=== PATIENT | male | born 1975 | race Caucasian/White ===

== ENCOUNTER 2022-01-12 22:04 | Inpatient (IN) | payer BC ==
[2022-01-13 00:16] LABS: Albumin 5.1 g/dL (3.5-5.0); Calcium 9.3 mg/dL (8.4-10.2); Potassium 4.7 mmol/L (3.5-5.1); Total Bilirubin 1.3 mg/dL (0.2-1.3); Total Protein 7.8 g/dL (6.3-8.2)
[2022-01-13 00:20] LABS: HCT 45.4 % (39.0-53.0); HGB 15.7 gm/dL (13.0-17.5); MCH 32.6 pg (25.0-35.0); MCHC 34.6 g/dL (31.0-37.0); MCV 94.3 fL (80.0-100.0); Mean Platelet Volume 7.6; Platelet Count 145 k/uL (150-450); RBC 4.81 m/uL (4.30-5.90); RDW 12.8 % (11.5-15.5)
[2022-01-13 00:57] LABS: Eosinophils # (M) 0.15 k/uL (0-0.7); Monocytes # (M) 0.45 k/uL (0-1.0); Neutrophils % (M) 56 %; Nucleated Red Blood Cells 0 /100 WBC (0-0); RBC Morphology Normal; Total Cells Counted 100
[2022-01-13 01:08] LABS: Appearance,Urine Clear (Clear); Bilirubin,Urine Negative (Negative); Blood,Urine Negative (Negative); Color,Urine Yellow; Glucose,Urine (UA) Negative (Negative); Ketones,Urine Negative (Negative); Leukocyte Esterase,Urine Negative (Negative); Nitrite,Urine Negative (Negative); PH, Urine 5.5 (5.0-8.0); Protein,Urine Negative (Negative); Specific Gravity,Urine 1.015 (1.001-1.035); Urobilinogen,Urine <2.0 mg/dL (<2.0)
[2022-01-13] MEDS ORDERED: SODIUM CHLORIDE 0.9% 1,000 ML IV STA (01:59)
[2022-01-13] MEDS ORDERED: KETOROLAC 15 MG/ML 1 ML VIAL IVP STA (01:59)
[2022-01-13] MEDS: ONDANSETRON 4 MG/2 ML VIAL IVP STA ×2 (02:19→16:24)
[2022-01-13] MEDS ORDERED: MAG HYDROX/AL HYDROX/SIMETH 30 ML, HYOSCYAMINE ELIXIR 10 ML PO STA ×2 (02:44)
[2022-01-13] MEDS ORDERED: PANTOPRAZOLE 40 MG/10 ML VIAL IVP STA (02:44)
--- NOTE | 2022-01-13 02:45 | ED ---
Abdominal Pain HPI - General Chief Complaint: Abdominal Pain Stated Complaint: Hernia Time Seen by Provider: 01/13/22 01:58 Source: patient, RN notes reviewed, old records reviewed Mode of arrival: ambulatory Limitations: no limitations - History of Present Illness Initial Comments: This is a 38-year-old male DF for evaluation regards to his abdominal pain. Patient has history of periumbilical hernia. Patient coming in with pain in the same area. Diffuse generalized abdominal pain severe. Patient is on medications pain record and become the hospital. He does have mild nausea without vomiting. Feels that he has reflux burning epigastric pain as well. No issues of bowel or bladder. No fevers no other complaints MD Complaint: abdominal pain -: hour(s) Location: periumbilical Radiation: suprapubic, bilateral flank Migration to: epigastric Severity: moderate Severity scale (1-10): 7 Quality: stabbing Consistency: constant Improves With: nothing Worsens With: nothing Context: recent surgery/procedure Associated Symptoms: nausea Treatments Prior to Arrival: other (none) - Related Data Allergies Allergy/AdvReac Type Severity Reaction Status Date / Time No Known Allergies Allergy Verified 01/12/22 22:45 Review of Systems ROS Statement: Those systems with pertinent positive or pertinent negative responses have been documented in the HPI. ROS Other: All systems not noted in ROS Statement are negative. Past Medical History Past Medical History: GERD/Reflux, Hypertension History of Any Multi-Drug Resistant Organisms: None Reported Past Surgical History: No Surgical Hx Reported Past Psychological History: No Psychological Hx Reported Smoking Status: Never smoker Past Alcohol Use History: Rare Past Drug Use History: None Reported Course Vital Signs 01/12/22 22:40 Temperature 97.8 F Pulse Rate 72 Respiratory 16 Rate Blood Pressure 147/97 O2 Sat by Pulse 100 Oximetry - Reevaluation(s) Reevaluation #1: 01/13/22 03:27 Medical records reviewed Reevaluation #2: 01/13/22 03:27 Patient symptoms are improved Reevaluation #3: 01/13/22 03:57 Patient informed of results and questions answered - Consultations Consultation #1: Spoke with Dr. Devine regarding findings she agrees to admit this patient Medical Decision Making - Medical Decision Making 46 male to the emergency department with incarcerated umbilical hernia, patient will be admitted for surgical evaluation management - Lab Data Result diagrams: 01/12/22 23:24 01/12/22 23:24 Lab Results 01/12/22 01/12/22 01/13/22 Range/Units 23:24 23:24 00:45 WBC 5.0 (3.8-10.6) k/uL RBC 4.81 (4.30-5.90) m/uL Hgb 15.7 (13.0-17.5) gm/dL Hct 45.4 (39.0-53.0) % MCV 94.3 (80.0-100.0) fL MCH 32.6 (25.0-35.0) pg MCHC 34.6 (31.0-37.0) g/dL RDW 12.8 (11.5-15.5) % Plt Count 145 L (150-450) k/uL MPV 7.6 Neutrophils % (Manual) 56 % Lymphocytes % (Manual) 32 % Monocytes % (Manual) 9 % Eosinophils % (Manual) 3 % Neutrophils # (Manual) 2.80 (1.3-7.7) k/uL Lymphocytes # (Manual) 1.60 (1.0-4.8) k/uL Monocytes # (Manual) 0.45 (0-1.0) k/uL Eosinophils # (Manual) 0.15 (0-0.7) k/uL Nucleated RBCs 0 (0-0) /100 WBC Manual Slide Review Performed RBC Morphology Normal Sodium 137 (137-145) mmol/L Potassium 4.7 (3.5-5.1) mmol/L Chloride 101 (98-107) mmol/L Carbon Dioxide 25 (22-30) mmol/L Anion Gap 11 mmol/L BUN 22 H (9-20) mg/dL Creatinine 1.60 H (0.66-1.25) mg/dL Est GFR (CKD-EPI)AfAm 58 (>60 ml/min/1.73 sqM) Est GFR (CKD-EPI)NonAf 50 (>60 ml/min/1.73 sqM) Glucose 84 (74-99) mg/dL Calcium 9.3 (8.4-10.2) mg/dL Total Bilirubin 1.3 (0.2-1.3) mg/dL AST 45 (17-59) U/L ALT 49 (4-49) U/L Alkaline Phosphatase 41 (38-126) U/L Total Protein 7.8 (6.3-8.2) g/dL Albumin 5.1 H (3.5-5.0) g/dL Amylase 90 (30-110) U/L Lipase 114 (23-300) U/L Urine Color Yellow Urine Appearance Clear (Clear) Urine pH 5.5 (5.0-8.0) Ur Specific [place] 1.015 (1.001-1.035) Urine Protein Negative (Negative) Urine Glucose (UA) Negative (Negative) Urine Ketones Negative (Negative) Urine Blood Negative (Negative) Urine Nitrite Negative (Negative) Urine Bilirubin Negative (Negative) Urine Urobilinogen <2.0 (<2.0) mg/dL Ur Leukocyte Esterase Negative (Negative) - Radiology Data Radiology results: report reviewed (CT head and pelvis positive for incarcerated hernia), image reviewed Disposition Clinical Impression: Incarcerated umbilical hernia, Abdominal pain Disposition: ADMITTED IP TO THIS [facility] Condition: Good Is patient prescribed a controlled substance at d/c from ED?: No Referrals: None,Stated [Primary Care Provider] - 1-2 days
--- NOTE | 2022-01-13 03:02 | CT ---
EXAMINATION TYPE: CT abdomen pelvis w con DATE OF EXAM: 01/13/2022 COMPARISON: None HISTORY: HERNIA PAIN CT DLP: 1761.6 mGycm Automated exposure control for dose reduction was used. CONTRAST: Performed with IV Contrast, patient injected with 80 mL of Isovue 300. Images obtained from the diaphragm to the floor the pelvis with IV contrast. There is mild subsegmental atelectasis left lung base. Heart size is normal. No pericardial effusion. There is no pleural effusion. The stomach is large. Liver and spleen are intact. The bile ducts are not dilated. Spleen is enlarged and measures 14.5 cm. Gallbladder is intact. There is no pancreatic mass. There is no adrenal mass. Kidneys show satisfactory contrast opacification. There is bilateral renal parapelvic cysts. No hydronephrosis. Ureters are not dilated. There is no retroperitoneal adenopathy. Bladder distends smoothly. There is minimal prostate calcification. There is no evidence of pelvic m ass. The appendix is inferior and small and appears normal. There are multiple dilated small bowel loops in the left upper quadrant. These measure up to 3.8 cm i n diameter. Transition point appears to be incarcerated periumbilical ventral hernia containing loop of small bowel. The terminal ileum is not dilated. There is no inguinal hernia. No free fluid in the pelvis. No mesenteric edema. No ascites. The lumbar vertebrae have normal alignment. No compression fracture. Bony pelvis is intact. The hip joints are intact. IMPRESSION: There is dilated proximal small bowel with mechanical proximal small bowel obstruction related to inc arcerated ventral hernia. Mild splenomegaly. Mild subsegmental atelectasis left lung base.
[2022-01-13] MEDS ORDERED: ONDANSETRON 4 MG/2 ML VIAL IVP PRN (03:56)
[2022-01-13] MEDS ORDERED: MORPHINE SULFATE 4 MG/ML SYRINGE IV PRN (03:56)
[2022-01-13] MEDS ORDERED: MORPHINE SULFATE 4 MG/ML SYRINGE IVP STA (03:56)
[2022-01-13] MEDS ORDERED: SODIUM CHLORIDE 0.9% 1,000 ML IV ONE (03:56)
--- NOTE | 2022-01-13 11:40 | XR ---
EXAMINATION TYPE: XR abdomen 2V DATE OF EXAM: 01/13/2022 CLINICAL HISTORY: Hernia with pain TECHNIQUE: Supine and upright views of the abdomen are obtained. COMPARISON: CT abdomen and pelvis earlier today. FINDINGS: Some paucity of bowel gas. Gas and fecal material seen in nondistended colon along the shaquille phery. Less well-visualized fluid dilated stomach and proximal small bowel loops on plain film versus CT. Splenomegaly redemonstrated. No free air. Lung bases are clear. Osseous structures are intact. IMPRESSION: Overall nonspecific bowel gas pattern. Findings consistent with proximal to mid small shirin wel obstruction due to ventral wall hernia are seen better on CT versus x-ray.
--- NOTE | 2022-01-13 13:30 | P.GSHP ---
History of Present Illness H&P Date: 01/13/22 CHIEF COMPLAINT: Abdominal pain HISTORY OF PRESENT ILLNESS: This is a 46 -year-old male with a known prior history of umbilical hernia repair and a right inguinal hernia repair. He presents to the hospital with complaints of periumbilical pain and a bulging at the umbilicus. He reports having significant heartburn and nausea. He rated the pain about 6 out of 10. The pain at times with increased to 10 out of 10. The pain was located in the umbilicus area and radiated to the left side of his abdomen. He reports being able to have bowel movements and flatus. He does have a prior history of atrial fibrillation and had undergone cardioversion. He is not on any blood thinners. Computed tomography scan of the abdomen showed evidence of dilated proximal small bowel with mechanical proximal small bowel obstruction related to incarcerated ventral hernia. Patient denies any fever chills or sweats. Patient reports that the hernia bulge as resolved since coming into the ER. PAST MEDICAL HISTORY: See list. PAST SURGICAL HISTORY: See list. MEDICATIONS: See list. ALLERGIES: See list. SOCIAL HISTORY: No illicit drug use. REVIEW OF SYSTEMS: CONSTITUTIONAL: Denies fever or chills. HEENT: Denies blurred vision, vision changes, or eye pain. Denies hemoptysis ENDOCRINE: Denies heat or cold intolerance. CARDIOVASCULAR: Denies chest pain or pressure. RESPIRATORY: No shortness of breath. GASTROINTESTINAL: Please refer to HPI NEURO: Denies history of seizures. PSYCH: No depression or suicidal ideation HEMATOLOGIC: Denies bleeding disorders. LYMPHATIC: The patient denies any lumps and bumps around the neck. GENITOURINARY: Denies any blood in urine or increased urinary frequency. MUSCULOSKELETAL: Denies myalgias. Denies joint swelling. Denies decreased range of motion beyond patients baseline. SKIN: Denies pruitis. Denies rash. PHYSICAL EXAM: VITAL SIGNS: Reviewed GENERAL: Well-developed in no acute distress. HEENT: No sclera icterus. Extraocular movements grossly intact. Moist buccal mucosa. Head is atraumatic, normocephalic. Hears conversational speech. No nasal drainage. NECK: Supple without lymphadenopathy. CHEST: Non-labored respirations and equal bilateral excursions. CARDIOVASCULAR: Palpable 2+ radial pulses. ABDOMEN: Soft. Nondistended. Patient does have tenderness with palpation of the umbilicus area. Hernia reduced. MUSCULOSKELETAL: No clubbing or cyanosis. NEUROLOGIC: No focal or lateralizing signs. Cranial nerves II through XII grossly intact. PSYCH: Appropriate affect. Alert and oriented to person, place and time. SKIN: Well perfused. Good skin turgor. LABORATORY DATA: WBC 5.0 hemoglobin 15.7 platelet 145 Sodium 137 potassium 4.7 creatinine 1.60 LFTs normal lipase 114 Urinalysis negative IMAGING: Computed tomography scan of the abdomen showed evidence of dilated proximal small bowel with mechanical proximal small bowel obstruction related to incarcerated ventral hernia. Mild splenomegaly. Mild subsegmental atelectasis left lung base. ASSESSMENT: 1. Mechanical small bowel obstruction related to incarcerated ventral hernia 2. Prior history of umbilical hernia repair 3. Acute kidney injury 4. Hypertension 5. Prior history of atrial fibrillation status post cardioversion 6. History of PVCs 7. History of kidney stone status post intervention PLAN: -Patient scheduled for robotic umbilical hernia repair today with Dr. Magaña -Keep patient nothing by mouth -Continue IV fluids -Continue supportive care -Follow up abdominal x-ray and preop EKG ordered Physician Box Car Loader note has been reviewed by physician. Signing provider agrees with the documented findings, assessment, and plan of care. REASON FOR CONSULTATION: Bowel obstruction HISTORY OF PRESENT ILLNESS: The patient is a 46 year old male travelling from [place], [place] who is visiting [place]. He reports prior history of umbilical hernia repair 20+ years ago. This week, he has swelling along his abdomen. He reports the past 3 days having soreness along his abdomen. 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 No emesis. He reports decrease flatus yesterday and he presented to the emergency room. Today, he reports is abdomen is less distended and swelling along his abdomen has improved. He had diagnostic studies of bowel obstruction due his hernia. He is admitted due to small bowel obstruction. PAST MEDICAL HISTORY: See list and reviewed PAST SURGICAL HISTORY: See list and reviewed MEDICATIONS: See list and reviewed ALLERGIES: See list and reviewed SOCIAL HISTORY: See list and reviewed FAMILY HISTORY: See list and reviewed REVIEW OF ORGAN SYSTEMS: CONSTITUTIONAL: No fevers or chills. No recent weight loss. EYES: Denies any trouble with vision. No glasses. HEENT: No difficulties with hearing. No nosebleeds. No difficulty swallowing. RESPIRATORY: Denies pneumonia. Denies any troubles with breathing or dyspnea on exertion. CARDIOVASCULAR: Past atrial fibrillation with conversion. Has hypertensivie heart disease. GASTROINTESTINAL: Denies fatty food intolerance. Denies change in bowel habits and gas bloat. Has gastroesophageal reflux disease. GENITOURINARY: Denies any blood in urine or increased urinary frequency. Has kidney stones. NEUROLOGICAL: Denies any numbness or tingling along the distal extremities. No seizure disorders or headaches. MUSCULOSKELETAL: Has back pain, stiffness or joint arthritis. SKIN: No current skin cancer. No rash. PSYCHIATRIC: Hast depression. No suicidal thoughts. ENDOCRINE: Denies current thyroid disorders. Denies any blood sugar glucose intolerance. HEME/LYMPHATIC: Denies any lumps and bumps around the neck. No recent deep venous thrombosis. ALLERGY/IMMUNOLOGY: No immunoglobulin therapy. No immune deficiencies. BREAST: Denies current breast lumps, pain or nipple discharge. PHYSICAL EXAM: VITALS: Reviewed CONSTITUTIONAL: Well developed and in no acute distress. EYES: Conjuctivae without sclera icterus. Extraocular movements grossly intact. HEAD, EARS, NOSE, THROAT: Moist buccal mucosa. Head is atraumatic, normocephal ic. Hears conversational speech. No nasal drainage. NECK: Supple. No JV distention. No thyroidomegaly. RESPIRATORY: Non-labored respirations and equal bilateral excursions. No gross wheezes. CARDIOVASCULAR: Regular rate and rhythm. Extremities without moderate edema. Palpable 2+ radial pulses. ABDOMEN: Tender umbilicus with well-healed infraumbilical incision. No peritonitis. No skin changes. LYMPH: No neck lymphadenopathy. MUSCULOSKELETAL: Nail and fingers with good capillary refill. No clubbing, cyanosis, or edema. SKIN: Warm and well perfused with good skin turgor. NEUROLOGIC: Cranial nerves II through XII grossly intact. Sensation upper and extremities intact. No focal or lateralizing signs. PSYCH: Appropriate affect. Alert and oriented to person, place and time. Displays appropriate insight. CLINCAL LABS: Reviewed. WBC normal at 5.0. Platelets low 145. IMAGING: Independently reviewed CT of the abdomen and pelvis demonstrating incarcerated umbilical hernia incorporation small bowel with distal decompression, consistent with bowel obstruction. This is my independent interpretation. RADIOLOGY: Report reviewed. CT with incarcerated ventral hernia and dilated s mall bowel. ASSESSMENT: 1. Incarcerated ventral hernia with bowel obstruction 2. Hypertensive heart disease PLAN: 1. Recommend EKG for pre-existing history of hypertensive heart disease and pa st atrial fibrillation. 2. Recommend robotic ventral hernia repair due to bowel obstruction. 3. He is elevated risk of complications with hypertensive heart disease. ADVANCE DIRECTIVE: Thank you for this kind consultation. Past Medical History Past Medical History: GERD/Reflux, Hypertension, Osteoarthritis (OA) Additional Past Medical History / Comment(s): Cervical DDD, kidney stone and went into afib for about a week at the time of the stone, sinus problems History of Any Multi-Drug Resistant Organisms: None Reported Past Surgical History: No Surgical Hx Reported Additional Past Surgical History / Comment(s): mbilical hernia repair, R inguinal hernia repair, at age 4 yrs pt states he had blood clots removed from below R axillae and from buttock, cervical ablations Past Anesthesia/Blood Transfusion Reactions: No Reported Reaction Smoking Status: Never smoker - Past Family History Father Family Medical History: AFIB Additional Family Medical History / Comment(s): AICD, strangulated umbilical hernia Mother Family Medical History: Thyroid Disorder Additional Family Medical History / Comment(s): Multiple issues with hernias, hyperthyroid Medications and Allergies Home Medications Medication Instructions Recorded Confirmed Type Acetaminophen Tab [Tylenol Tab] 1,000 mg PO Q6HR PRN #30 tablet 01/13/22 Rx Fluticasone Propionate 1 spray EA NOSTRIL DAILY PRN 01/13/22 01/13/22 History Ibuprofen 800 mg PO Q8HR PRN #30 tablet 01/13/22 Rx Losartan [Cozaar] 50 mg PO DAILY@199901/13/22 01/13/22 History Multivit-Min/FA/Lycopen/Lutein 1 tab PO DAILY@199901/13/22 01/13/22 History [Centrum Silver Tablet] Omeprazole [PriLOSEC] 40 mg PO DAILY@199901/13/22 01/13/22 History Phentermine HCl 37.5 mg PO DAILY 01/13/22 01/13/22 History Pyridoxine HCl (Vitamin B6) 100 mg PO DAILY@199901/13/22 01/13/22 History [Vitamin B-6] Simethicone [Gas-X] 125 mg PO AC-TID PRN #20 capsule 01/13/22 Rx Tadalafil [Cialis] 40 - 60 mg PO DAILY PRN 01/13/22 01/13/22 History Ubidecarenone [Co Q-10] 100 mg PO DAILY@199901/13/22 01/13/22 History buPROPion HCL [buPROPion HCL Xl] 150 mg PO DAILY@199901/13/22 01/13/22 History Allergies Allergy/AdvReac Type Severity Reaction Status Date / Time No Known Allergies Allergy Verified 01/13/22 07:55 Surgical - Exam Vital Signs Temp Pulse Resp BP Pulse Ox 97.8 F 72 16 147/97 100 01/12/22 22:40 01/12/22 22:40 01/12/22 22:40 01/12/22 22:40 01/12/22 22:40 Results - Labs 01/12/22 23:24 01/12/22 23:24 Abnormal Lab Results - Last 24 Hours (Table) 01/12/22 01/12/22 Range/Units 23:24 23:24 Plt Count 145 L (150-450) k/uL BUN 22 H (9-20) mg/dL Creatinine 1.60 H (0.66-1.25) mg/dL Albumin 5.1 H (3.5-5.0) g/dL Diabetes panel 01/12/22 Range/Units 23:24 Sodium 137 (137-145) mmol/L Potassium 4.7 (3.5-5.1) mmol/L Chloride 101 (98-107) mmol/L Carbon Dioxide 25 (22-30) mmol/L BUN 22 H (9-20) mg/dL Creatinine 1.60 H (0.66-1.25) mg/dL Glucose 84 (74-99) mg/dL Calcium 9.3 (8.4-10.2) mg/dL AST 45 (17-59) U/L ALT 49 (4-49) U/L Alkaline Phosphatase 41 (38-126) U/L Total Protein 7.8 (6.3-8.2) g/dL Albumin 5.1 H (3.5-5.0) g/dL Calcium panel 01/12/22 Range/Units 23:24 Calcium 9.3 (8.4-10.2) mg/dL Albumin 5.1 H (3.5-5.0) g/dL Pituitary panel 01/12/22 Range/Units 23:24 Sodium 137 (137-145) mmol/L Potassium 4.7 (3.5-5.1) mmol/L Chloride 101 (98-107) mmol/L Carbon Dioxide 25 (22-30) mmol/L BUN 22 H (9-20) mg/dL Creatinine 1.60 H (0.66-1.25) mg/dL Glucose 84 (74-99) mg/dL Calcium 9.3 (8.4-10.2) mg/dL Adrenal panel 01/12/22 Range/Units 23:24 Sodium 137 (137-145) mmol/L Potassium 4.7 (3.5-5.1) mmol/L Chloride 101 (98-107) mmol/L Carbon Dioxide 25 (22-30) mmol/L BUN 22 H (9-20) mg/dL Creatinine 1.60 H (0.66-1.25) mg/dL Glucose 84 (74-99) mg/dL Calcium 9.3 (8.4-10.2) mg/dL Total Bilirubin 1.3 (0.2-1.3) mg/dL AST 45 (17-59) U/L ALT 49 (4-49) U/L Alkaline Phosphatase 41 (38-126) U/L Total Protein 7.8 (6.3-8.2) g/dL Albumin 5.1 H (3.5-5.0) g/dL
[2022-01-13] MEDS ORDERED: ACETAMINOPHEN TAB 500 MG TAB PO PRN (16:06)
--- NOTE | 2022-01-13 16:06 | P.HPADDEND ---
H&P Addendum H&P Addendum Date: 01/13/22 Benefits and risks of robotic repair of incarcerated umbilical hernia described. Patient had prior repair with recurrence. EKG without ST changes or T-wave abnormalities.
[2022-01-13] MEDS ORDERED: TAMSULOSIN 0.4 MG CAP.ER.24H PO PRN (16:07)
[2022-01-13] MEDS ORDERED: GABAPENTIN 300 MG CAP PO PRN (16:07)
[2022-01-13] MEDS ORDERED: LACTATED RINGERS 1,000 ML IV ONE ×2 (16:24→17:33)
[2022-01-13] MEDS ORDERED: MIDAZOLAM 2 MG/2 ML VIAL IVP ONE (16:31)
[2022-01-13] MEDS ORDERED: BUPIVACAIN-EPI 0.25%-1:200,000 30 ML VIAL SQ ONE ×2 (16:35→16:59)
[2022-01-13] MEDS: HEPARIN SODIUM,PORCINE/PF 5,000 UNIT/0.5 ML SYRINGE SQ PRN ×2 (16:36→16:40)
[2022-01-13] MEDS ORDERED: LIDOCAINE 2% INJ 20 MG/ML (2 ML VIAL) ONE (16:37)
[2022-01-13] MEDS ORDERED: fentaNYL (PF) 50 MCG/ML 2 ML AMP ONE (16:37)
[2022-01-13] MEDS ORDERED: HYDROmorphone (PF) 1 MG/ML ONE (16:37)
[2022-01-13] MEDS ORDERED: ROPIVACAINE 5 MG/ML 30 ML VIAL ONE (16:37)
[2022-01-13] MEDS ORDERED: SUCCINYLCHOLINE CHLORIDE 100 MG/5 ML SYR IV ONE (16:37)
[2022-01-13] MEDS ORDERED: NEOSTIGMINE 1 MG/ML 10 ML VIAL ONE (16:37)
[2022-01-13] MEDS ORDERED: PROPOFOL 10 MG/ML 20 ML VIAL IV ONE (16:37)
[2022-01-13] MEDS ORDERED: DEXAMETHASONE SOD PHOSPHATE 4 MG/ML 1 ML VIAL ONE (16:37)
[2022-01-13] MEDS ORDERED: MIDAZOLAM 2 MG/2 ML VIAL ONE (16:37)
[2022-01-13] MEDS ORDERED: GLYCOPYRROLATE 0.2 MG/ML 2 ML VIAL ONE (16:37)
[2022-01-13] MEDS ORDERED: ROCURONIUM 10 MG/ML (5 ML VIAL) IV ONE (16:37)
[2022-01-13] MEDS ORDERED: KETOROLAC 15 MG/ML 1 ML VIAL ONE (16:37)
--- NOTE | 2022-01-13 17:57 | P.PN ---
Progress Note - Text Progress Note Date: 01/13/22 To Whom It May Concern: William Aguilar III is under my general surgical care. He underwent major abdominal surgery for diagnosis K43.2 He was hospitalized 01/12/2022 to 01/14/2022. Patient is unable to work during time of recovery with a 4 pound exertional restriction. He may return to work without restrictions, 02/14/2022. Feel free to contact us if questions. Sincerely, Andra Magaña MD, FACS
--- NOTE | 2022-01-13 18:04 | P.OP ---
Date of Procedure: 01/13/22 Description of Procedure: SURGEON: ELIGIO GIFFORD MD PREOPERATIVE DIAGNOSES: 1. Initial incarcerated recurrent incisional hernia at umbilicus with bowel obstruction 2. Hypertensive heart disease 3. Past history of atrial fibrillation 4. Sinus bradycardia 5. Obesity due to excess calories, BMI 32.3 6. Gastroesophageal reflux disease 7. Depressive disorder 8. History of bilateral inguinal hernia 9. Prior history umbilical hernia repair POSTOPERATIVE DIAGNOSES: 1. Initial incarcerated recurrent incisional hernia at umbilicus with bowel obstruction, 2 cm 2. Hypertensive heart disease 3. Past history of atrial fibrillation 4. Sinus bradycardia 5. Obesity due to excess calories, BMI 32.3 6. Gastroesophageal reflux disease 7. Depressive disorder 8. History of bilateral inguinal hernia 9. Prior history umbilical hernia repair OPERATION: 1. Robotic-assisted da Jagjit Xi laparoscopic repair of recurrent incarcerated incisional ventral hernia with mesh, ventralight ST mesh 11.4 cm Anesthesia: GETA, regional, local Estimated Blood Loss (ml): 5 Pathology: 1. Incarcerated recurrent incisional hernia contents COMPLICATIONS: None. Operative Findings: 1. Recurrent incarcerated incisional hernia of the umbilicus, 2 cm 2. No recurrent bilateral inguinal hernia 3. Fascia repaired using #1 V-lock suture INDICATIONS: The patient is a 46-year-old male from [facility] presented to the emergency room acutely with swelling along the abdomen and bowel obstruction. Diagnostic studies demonstrated incarcerated hernia and small bowel. Emergent surgical intervention was described. Surgical intervention with laparoscopic versus robotic and open techniques were reviewed. Placement of mesh was also reviewed. Benefits and risks were thoroughly described. Informed consent was obtained. DESCRIPTION OF PROCEDURE: The patient was brought into the operating room and laid in supine position. After general induction, the abdomen had been prepped and draped in standard sterile fashion. Ioban draping was also placed. Prior to incision, a timeout protocol was confirmed with surgical team regarding the patient's name including procedures to be performed. The robot was primed prior to the procedure. A field block using local anesthetic was placed along hernia site including the proposed port sites. Initial incision was made with an #11 blade along the left upper quadrant. A 0 degree 5 mm laparoscopic trocar entry was performed and insufflated. Three 8 mm ports were placed along the left lateral abdominal wall under direct localization after exchanging the 5-mm for an 8 mm port. Placements of the ports were 15 cm from the target anatomy and 10 cm apart. An accessory 12 mm port was placed at the left epigastrium for exchange of mesh including sutures. The da Jagjit Xi robot was previously primed, prepped and draped then docked onto the left side of the patient. I then sat at the robot Da Jagjit Xi console where working arms of the robot including Bovie cautery connected to robotic scissors, needle commercial relief driver, and graspers placed by the graduate assistant. Incarcerated omental contents were found along the incisional hernia defect corresponding to prior umbilical hernia repair. The defects were reduced with preperitoneal fat. Fascial defect found, 2 x 2 cm. Resolution of bowel obstruction was confirmed as a small bowel was without dilation. The incarcerated contents were reduced as the peritoneal fat was cleaned from the abdominal wall. Next, hemostasis was checked with cautery. The hernia defects were oversewn using #1 nonabsorbable V-lock suture for each defect separately with fascial imbrication x 2. Next, ventralight ST mesh 11.4 cm was placed with the rough side towards the abdominal wall as to cover the incisional hernia defect. 2-0 VLOC 9 inch absorbable sutures were used to fixate the mesh. A final endoscopic imaging was obtained. All instruments and pneumoperitoneum were evacuated from the abdominal cavity. The da Jagjit Xi robot was undocked from the patient. I re-scrubbed into the case for closure of incisions. The fascia of the 12-mm port was probed and closed using 0 Vicryl and Omar Tovar. The incisions were reapproximated using 4-0 Monocryl in an interrupted subcuticular fashion. Liquid glue was applied to the skin after cleansing the skin with normal saline and dilute hydrogen peroxide. An abdominal binder was placed. An umbilical dressing was placed prior. At the end of the procedure, needle, sponge, and instrument count had been verified correct by surgical endoscopist. The patient was taken to the postanesthesia care unit in stable condition. Intraoperative findings were shared with the patient's family.
[2022-01-13] MEDS ORDERED: METOCLOPRAMIDE 5 MG/ML 2 ML VIAL IVP PRN (18:16)
[2022-01-13] MEDS ORDERED: HYDROmorphone 1 MG/ML 1 ML SYRINGE IVP PRN (18:16)
[2022-01-13] MEDS ORDERED: NALOXONE 0.4 MG/ML 1 ML VIAL IV PRN (18:16)
[2022-01-13] MEDS ORDERED: FLUTICASONE 50MCG/SPRAY NASAL 16GM EA NOSTRIL PRN (18:17)
--- NOTE | 2022-01-13 19:58 | P.ANPRN ---
Procedure Note - Anesthesia - Nerve Block Performed Bilateral Rectus Abdominis Single Time Out Performed: Yes Date of Procedure: 01/13/22 Procedure Start Time: 16:31 Procedure Stop Time: 16:35 Location of Patient: PreOp Indication: Acute Post-Operative Pain, Requested by Surgeon Sedation Type: Sedate with meaningful contact maintained Preparation: Sterile Prep Position: Supine Needle Types: Pajunk Needle Gauge: 21 Ultrasound used to visualize needle placement: Yes Ultrasound used to observe medication spread: Yes Blood Aspirated: No Pain Paresthesia on Injection Noted: No Resistance on Injection: Normal Image Stored and Saved: Yes Events: Uneventful and Well Tolerated (ropi .5% 20cc plus dexamethasone 4mg)
[2022-01-13] MEDS ORDERED: buPROPion XL 150 MG TAB.ER.24H PO SCH (20:00)
[2022-01-13] MEDS ORDERED: LOSARTAN 50 MG TAB PO SCH (20:00)
[2022-01-13] MEDS: FAMOTIDINE 20 MG TAB PO SCH (20:43)
[2022-01-14] MEDS: KETOROLAC 15 MG/ML 1 ML VIAL IVP SCH ×4 (00:07→13:18)
[2022-01-14] MEDS: ACETAMINOPHEN TAB 500 MG TAB PO SCH ×4 (00:08→13:18)
[2022-01-14] MEDS: FAMOTIDINE 20 MG TAB PO SCH (07:46)
[2022-01-14] MEDS ORDERED: ENOXAPARIN 30 MG/0.3 ML SYRINGE SQ SCH (09:00)
[2022-01-14 10:09] VITALS: BP 127/83; PULSE 66; RESP 18; TEMP 97.7
--- NOTE | 2022-01-14 13:25 | P.DS ---
Providers Date of admission: 01/13/22 04:05 Expected date of discharge: 01/14/22 Attending physician: Andra Magaña Consults: 01/13/22 16:06 Consult Physician Routine Consulting Provider: [facility] Consult Reason/Comments: Regional block Do you want consulting provider notified?: Yes Primary care physician: Physician Nonstaff Hospital Course: Discharge diagnosis 1. Initial incarcerated recurrent incisional hernia at umbilicus with bowel obstruction, 2 cm 2. Hypertensive heart disease 3. Past history of atrial fibrillation 4. Sinus bradycardia 5. Obesity due to excess calories, BMI 32.3 6. Gastroesophageal reflux disease 7. Depressive disorder 8. History of bilateral inguinal hernia 9. Prior history umbilical hernia repair Hospital course The patient is a 46-year-old male from [facility] presented to the emergency room acutely with swelling along the abdomen and bowel obstruction. Diagnostic studies demonstrated incarcerated hernia and small bowel. Patient is status post Robotic-assisted da Jagjit Xi laparoscopic repair of recurrent incarcerated incisional ventral hernia with mesh. He tolerated surgery well. His pain is controlled. He is tolerating diet. He is having flatus. He is up and ambulating. He is afebrile. He is stable for discharge. Physician Firearms Inspector note has been reviewed by physician. Signing provider agrees with the documented findings, assessment, and plan of care. As above. Discharge instructions reviewed including no lifting for 4 pounds in 4 weeks. Prior to 20 hour car travel to [place], DVT prophylaxis reviewed at length. Telehealth follow-up in 5 days described. Procedures: OPERATION: 1. Robotic-assisted da Jagjit Xi laparoscopic repair of recurrent incarcerated incisional ventral hernia with mesh, ventralight ST mesh 11.4 cm Anesthesia: GETA, regional, local Estimated Blood Loss (ml): 5 Pathology: 1. Incarcerated recurrent incisional hernia contents COMPLICATIONS: None. Operative Findings: 1. Recurrent incarcerated incisional hernia of the umbilicus, 2 cm 2. No recurrent bilateral inguinal hernia 3. Fascia repaired using #1 V-lock suture Patient Condition at Discharge: Stable Plan - Discharge Summary Discharge Rx Participant: Yes New Discharge Prescriptions: New Acetaminophen Tab [Tylenol Tab] 1,000 mg PO Q6HR PRN #30 tablet PRN Reason: Pain Simethicone [Gas-X] 125 mg PO AC-TID PRN #20 capsule PRN Reason: Pain Ibuprofen 800 mg PO Q8HR PRN #30 tablet PRN Reason: Pain Continue Tadalafil [Cialis] 40 - 60 mg PO DAILY PRN PRN Reason: sexual intercourse Multivit-Min/FA/Lycopen/Lutein [Centrum Silver Tablet] 1 tab PO DAILY@1999 Phentermine HCl 37.5 mg PO DAILY Losartan [Cozaar] 50 mg PO DAILY@1999 buPROPion HCL [buPROPion HCL Xl] 150 mg PO DAILY@1999 Pyridoxine HCl (Vitamin B6) [Vitamin B-6] 100 mg PO DAILY@1999 Ubidecarenone [Co Q-10] 100 mg PO DAILY@1999 Omeprazole [PriLOSEC] 40 mg PO DAILY@1999 Fluticasone Propionate 1 spray EA NOSTRIL DAILY PRN PRN Reason: Congestion Discontinued Ibuprofen [Motrin Ib] 800 mg PO Q8H PRN PRN Reason: Pain Acetaminophen [Tylenol Arthritis] 650 mg PO Q8HR PRN PRN Reason: Pain Discharge Medication List Acetaminophen Tab [Tylenol Tab] 1,000 mg PO Q6HR PRN #30 tablet 01/13/22 [Rx] Fluticasone Propionate 1 spray EA NOSTRIL DAILY PRN 01/13/22 [History] Ibuprofen 800 mg PO Q8HR PRN #30 tablet 01/13/22 [Rx] Losartan [Cozaar] 50 mg PO DAILY@199901/13/22 [History] Multivit-Min/FA/Lycopen/Lutein [Centrum Silver Tablet] 1 tab PO DAILY@199901/13/22 [History] Omeprazole [PriLOSEC] 40 mg PO DAILY@199901/13/22 [History] Phentermine HCl 37.5 mg PO DAILY 01/13/22 [History] Pyridoxine HCl (Vitamin B6) [Vitamin B-6] 100 mg PO DAILY@199901/13/22 [History] Simethicone [Gas-X] 125 mg PO AC-TID PRN #20 capsule 01/13/22 [Rx] Tadalafil [Cialis] 40 - 60 mg PO DAILY PRN 01/13/22 [History] Ubidecarenone [Co Q-10] 100 mg PO DAILY@199901/13/22 [History] buPROPion HCL [buPROPion HCL Xl] 150 mg PO DAILY@199901/13/22 [History] Follow up Appointment(s)/Referral(s): Andra Magaña MD [STAFF PHYSICIAN] - 01/18/22 (Telehealth) None,Stated [REFERRING] - 1-2 days Patient Instructions/Handouts: Abdominal Binder (DC), Ventral Hernia Repair (GEN) Activity/Diet/Wound Care/Special Instructions: DO NOT REMOVE UMBILICAL DRESSING. (REMOVE MondayJANUARY 18) Using antibacterial soap. No lifting over 4 pounds 4 weeks, February 13January shower. No bathtub soaks for 2 weeks, January 27 Wear abdominal binder daily for comfort except for showering. Use ice along incisions for today to prevent swelling. Take tylenol, aleve/ibuprofen, simethicone scheduled for 3 days for best pain relief Discharge Disposition: HOME SELF-CARE
== END 2022-01-14 14:07 | disposition home or self-care (01) | DRG 354 ==
LOC: EC 22:04 → 4SSUR 01-13 03:56 → OBSVTOIN 01-13 04:05 → 4SSUR 01-13 14:12
PROVIDERS: ADMIT Surgery Plastic and Reconstructive Surgery; ATTEND Surgery Plastic and Reconstructive Surgery
PROC: 8E0W4CZ Robotic Assisted Procedure of Trunk Region, Percutaneous Endoscopic Approach (ICD-10-PCS; 2022-01-13)
PROC: 0WUF4JZ Supplement Abdominal Wall with Synthetic Substitute, Percutaneous Endoscopic Approach (ICD-10-PCS; principal; 2022-01-13 11:30)
DX: K43.0 Incisional hernia with obstruction, without gangrene (principal); N17.9 Acute kidney failure, unspecified; K21.9 Gastro-esophageal reflux disease without esophagitis; I48.91 Unspecified atrial fibrillation; R00.1 Bradycardia, unspecified; E66.09 Other obesity due to excess calories; F32.A Depression, unspecified; I11.9 Hypertensive heart disease without heart failure; Z87.442 Personal history of urinary calculi; Z68.32 Body mass index [BMI] 32.0-32.9, adult; Z79.899 Other long term (current) drug therapy
CPT/HCPCS: 36415; 64999; 74019; 74177; 80053; 81003; 82150; 83690; 85025; 88302; 93005